=== PATIENT | male | born 1975 | race American Indian/Alaskan Native ===

== ENCOUNTER 2019-06-01 16:39 | Emergency (ER) | payer OTHER ==
[2019-06-01 17:07] VITALS: BP 174/85
--- NOTE | 2019-06-01 18:59 | Emergency Department Report ---
ED Extremity Problem HPI - General Chief complaint: Extremity Injury, Lower Stated complaint: LT ANKLE INJURY Time Seen by Provider: 06/01/19 18:10 Source: patient Mode of arrival: Ambulatory Limitations: No Limitations - History of Present Illness Initial comments: Patient is a 43-year-old male presents emergency room with complaints of a left ankle injury that occurred last night. He states that he stepped off of a maintenance stand and felt like he had an inversion injury of his left ankle. He states he also has pain in his left foot. He states that it got more uncomfortable today and he started to see a small amount of edema. He states he has sprained this ankle in the past. He is ambulatory with some discomfort. He denies any numbness or weakness. Patient has a past medical history of DM, hypertension, sleep apnea, GERD. He states he has an allergy to lisinopril. - Related Data Previous Rx's Medication Instructions Recorded Last Taken Type Naproxen [Naprosyn TAB] 500 mg PO BID PRN #14 tablet 06/01/19 Unknown Rx Allergies Allergy/AdvReac Type Severity Reaction Status Date / Time No Known Allergies Allergy Unverified 06/01/19 16:44 ED Review of Systems ROS: Stated complaint: LT ANKLE INJURY Other details as noted in HPI Comment: All other systems reviewed and negative ED Past Medical Hx - Past Medical History Previous Medical History?: Yes Hx Diabetes: Yes - Surgical History Past Surgical History?: No - Social History Smoking Status: Current Every Day Smoker Substance Use Type: Alcohol - Medications Home Medications: Home Medications Medication Instructions Recorded Confirmed Last Taken Type Naproxen [Naprosyn TAB] 500 mg PO BID PRN #14 tablet 06/01/19 Unknown Rx ED Physical Exam - General Limitations: No Limitations General appearance: alert, in no apparent distress - Head Head exam: Present: atraumatic, normocephalic - Eye Eye exam: Present: normal appearance - ENT ENT exam: Present: mucous membranes moist - Extremities Exam Extremities exam: Present: other (TTP over the left lateral malleolus and left lateral foot, small amount of edema present, no obvious joint laxity, no obvious deformity, FROM of the left ankle, foot, and toes, he has discomfort with flexion and internal rotation of the left ankle, neurovascularly intact) - Neurological Exam Neurological exam: Present: alert, oriented X3 - Psychiatric Psychiatric exam: Present: normal affect, normal mood - Skin Skin exam: Present: warm, dry, intact ED Course Vital Signs 06/01/19 17:04 Temperature 98.4 F Pulse Rate 83 Respiratory 20 Rate Blood Pressure 174/85 O2 Sat by Pulse 98 Oximetry ED Medical Decision Making - Radiology Data Radiology results: report reviewed Left ankle-3 views Left foot-3 views INDICATION: left lateral ankle pain. COMPARISON: None. IMPRESSION: Mild soft tissue swelling about the ankle especially laterally. Linear metallic radiopaque foreign body is seen in the plantar/medial soft tissues of the forefoot immediately adjacent to the great toe metatarsal. No acute fracture. Signer Name: Sai Ballesteros MD Signed: 06/01/2019 7:18 PM Workstation Name: [id number] Transcribed By: KAPIL Dictated By: Sai Ballesteros MD Electronically Authenticated By: Sai Ballesteros MD Signed Date/Time: 06/01/191917 - Medical Decision Making Patient is a 43-year-old male presents emergency room with complaints of a left ankle injury that occurred last night. He states that he stepped off of a maintenance stand and felt like he had an inversion injury of his left ankle. He states he also has pain in his left foot. He states that it got more uncomfortable today and he started to see a small amount of edema. He states he has sprained this ankle in the past. He is ambulatory with some discomfort. He denies any numbness or weakness. Patient has a past medical history of DM, hyp ertension, sleep apnea, GERD. He states he has an allergy to lisinopril. vitals are stable, pt does have elevated BP, history of chronic HTN. on exam: TTP over the left lateral malleolus and left lateral foot, small amount of edema present, no obvious joint laxity, no obvious deformity, FROM of the left ankle, foot, and toes, he has discomfort with flexion and internal rotation of the left ankle, neurovascularly intact. XR left foot and ankle: Mild soft tissue swelling about the ankle especially laterally. Linear metallic radiopaque foreign body is seen in the plantar/medial soft tissues of the forefoot immediately adjacent to the great toe metatarsal. No acute fracture. patient states when he was a child he stepped on a sewing needle and has a chronic foreign body, no issues. Examinati on consistent with left ankle sprain. Patient given prescription for naproxen. Patient placed in ankle stirrup splint and given crutches. advised pt to please take medication as prescribed. May use ice for 15 minutes at a time, rest, elevation of the leg. Please do not bear weight until you're able to be cleared by an Orthopedic doctor. Follow-up with orthopedic doctor in the next 2-3 days. Return to the emergency room for any new or worsening symptoms. - Differential Diagnosis strain, sprain, fx, dislocation, tendonitis Critical care attestation.: If time is entered above; I have spent that time in minutes in the direct care of this critically ill patient, excluding procedure time. ED Disposition Clinical Impression: Left ankle sprain Qualifiers: Encounter type: initial encounter Involved ligament of ankle: unspecified ligament Qualified Code(s): S93.402A - Sprain of unspecified ligament of left ankle, initial encounter Disposition: TO HOME OR SELFCARE Is pt being admited?: No Does the pt Need Aspirin: No Condition: Stable Instructions: Ankle Sprain (ED), Crutch Instructions (ED), Ankle Stirrup Splint (ED) Additional Instructions: Please take medication as prescribed. May use ice for 15 minutes at a time, rest, elevation of the leg. Please do not bear weight until you're able to be cleared by an Orthopedic doctor. Follow-up with orthopedic doctor in the next 2-3 days. Return to the emergency room for any new or worsening symptoms. Prescriptions: Naproxen [Naprosyn TAB] 500 mg PO BID PRN #14 tablet PRN Reason: pain Referrals: [facility] [Provider Group] - 2-3 Days KEY LAMAR MD [Staff Physician] - 2-3 Days Time of Disposition: 19:25 Print Language: MOZAMBICAN
--- NOTE | 2019-06-01 19:22 | XRay Report ---
Left ankle-3 views Left foot-3 views INDICATION: left lateral ankle pain. COMPARISON: None. IMPRESSION: Mild soft tissue swelling about the ankle especially laterally. Linear metallic radiopa que foreign body is seen in the plantar/medial soft tissues of the forefoot immediately adjacent to t he great toe metatarsal. No acute fracture. Signer Name: Sai Ballesteros MD Signed: 06/01/2019 7:18 PM Workstation Name: [id number]
== END 2019-06-01 19:50 | disposition home or self-care (01) ==
LOC: ED 16:39
DX: S93.402A Sprain of unspecified ligament of left ankle, initial encounter (principal); E11.9 Type 2 diabetes mellitus without complications; F17.200 Nicotine dependence, unspecified, uncomplicated; X50.9XXA Other and unspecified overexertion or strenuous movements or postures, initial encounter; Y93.89 Activity, other specified; Y92.89 Other specified places as the place of occurrence of the external cause; Y99.8 Other external cause status